=== PATIENT | male | born 1965 | race Caucasian/White ===

== ENCOUNTER → 2021-11-11 10:30 | Outpatient (BNVA) | payer OTHER, SELFPAY | PROVIDERS: PCP Family Medicine; Visit Provider Student in an Organized Health Care Education/Training Program | DX: M05.9 Rheumatoid arthritis with rheumatoid factor, unspecified (principal); E11.42 Type 2 diabetes mellitus with diabetic polyneuropathy | CPT/HCPCS: 99202 ==

== ENCOUNTER 2021-12-07 15:02 | Outpatient (REF) | payer OTHER, SELFPAY ==
--- NOTE | ~2021-12-07 | XR_ITS ---
EXAMINATION: XR SHOULDER RIGHT XR SHOULDER LEFT CLINICAL INFORMATION: Rheumatoid arthritis. COMPARISON: None TECHNIQUE: Right shoulder, 3 views Left shoulder, 3 views FINDINGS: RIGHT SHOULDER: Alignment is normal at the glenohumeral and acromioclavicular joints. Joint spaces are maintained. No erosions. There are no radiographic findings of any significant inflammatory or degenerative arthropathy. The subacromial space is normal. No abnormal soft tissue calcifications of the shoulder. The visualized right lung is normal. LEFT SHOULDER: Alignment is normal at the glenohumeral and acromioclavicular joints. Joint spaces are maintained. No erosions. The subacromial space is normal. No abnormal soft tissue calcifications. The visualized left lung is normal. XR/XR shoulder RT min 2V IMPRESSION: No significant findings. No radiographic evidence of rheumatoid arthritis at either shoulder.
--- NOTE | ~2021-12-07 | XR_ITS ---
EXAMINATION: XR ANKLE RIGHT XR ANKLE LEFT XR FOOT RIGHT XR FOOT LEFT CLINICAL INFORMATION: Rheumatoid arthritis. COMPARISON: None TECHNIQUE: Right ankle, 2 views and right foot, 3 views Left ankle, 2 views and left foot, 3 views FINDINGS: RIGHT ANKLE AND FOOT: Bones have normal alignment at the ankle. Incidentally noted is a bone island of the distal tibial diaphysis. No suspicious osseous lesion. The ankle joint space is normal. No evidence of erosions, ankle joint effusion or focal soft tissue swelling. The metatarsophalangeal are well-preserved. There appears to be minimal narrowing of the great toe interphalangeal joint space. No periarticular osteoporosis, bare area erosion, periostitis or focal soft tissue edema. LEFT ANKLE AND FOOT: Bones have normal alignment at the ankle. The ankle joint space is normal. No evidence of erosions, ankle joint effusion or focal soft tissue swelling. Small plantar calcaneal enthesophyte is present. The metatarsophalangeal are well-preserved. There is minimal narrowing of the great toe interphalangeal joint space. No periarticular osteoporosis, bare area erosion, periostitis or focal soft tissue edema. XR/XR foot LT 2V IMPRESSION: No significant radiographic findings in either foot or ankle. No evidence of rheumatoid arthritis.
--- NOTE | ~2021-12-07 | XR_ITS ---
EXAMINATION: XR ANKLE RIGHT XR ANKLE LEFT XR FOOT RIGHT XR FOOT LEFT CLINICAL INFORMATION: Rheumatoid arthritis. COMPARISON: None TECHNIQUE: Right ankle, 2 views and right foot, 3 views Left ankle, 2 views and left foot, 3 views FINDINGS: RIGHT ANKLE AND FOOT: Bones have normal alignment at the ankle. Incidentally noted is a bone island of the distal tibial diaphysis. No suspicious osseous lesion. The ankle joint space is normal. No evidence of erosions, ankle joint effusion or focal soft tissue swelling. The metatarsophalangeal are well-preserved. There appears to be minimal narrowing of the great toe interphalangeal joint space. No periarticular osteoporosis, bare area erosion, periostitis or focal soft tissue edema. LEFT ANKLE AND FOOT: Bones have normal alignment at the ankle. The ankle joint space is normal. No evidence of erosions, ankle joint effusion or focal soft tissue swelling. Small plantar calcaneal enthesophyte is present. The metatarsophalangeal are well-preserved. There is minimal narrowing of the great toe interphalangeal joint space. No periarticular osteoporosis, bare area erosion, periostitis or focal soft tissue edema. XR/XR ankle RT min 3V IMPRESSION: No significant radiographic findings in either foot or ankle. No evidence of rheumatoid arthritis.
--- NOTE | ~2021-12-07 | XR_ITS ---
EXAMINATION: XR HAND WRIST RIGHT XR HAND WRIST LEFT CLINICAL INFORMATION: Rheumatoid arthritis. COMPARISON: Radiographs of the hands from 08/08/2019. TECHNIQUE: Right hand and wrist, 3 views Left hand and wrist, 3 views FINDINGS: Left hand and wrist: Alignment is normal in the hand and wrist. The joint spaces are maintained. No periarticular osteoporosis, bare area erosions, periostitis or focal soft tissue swelling. There is punctate soft tissue calcification anterolateral to the region of the PIP joint of the third digit. Right hand and wrist: Alignment is normal in the hand and wrist. The joint spaces are maintained. No periarticular osteoporosis, bare area erosions or periostitis. Chronic mild cortical thickening of the ulnar sided cortex of the proximal phalanx of the index finger is consistent with sequela of remote trauma, unchanged compared to 08/08/2019. Again noted is a small, approximately 0.1 cm sized radiopaque foreign body in soft tissues at the web space between the second and third digits. XR/XR hand wrist LT IMPRESSION: No radiographic evidence of rheumatoid arthritis in either hand or wrist.
--- NOTE | ~2021-12-07 | XR_ITS ---
EXAMINATION: XR HAND WRIST RIGHT XR HAND WRIST LEFT CLINICAL INFORMATION: Rheumatoid arthritis. COMPARISON: Radiographs of the hands from 08/08/2019. TECHNIQUE: Right hand and wrist, 3 views Left hand and wrist, 3 views FINDINGS: Left hand and wrist: Alignment is normal in the hand and wrist. The joint spaces are maintained. No periarticular osteoporosis, bare area erosions, periostitis or focal soft tissue swelling. There is punctate soft tissue calcification anterolateral to the region of the PIP joint of the third digit. Right hand and wrist: Alignment is normal in the hand and wrist. The joint spaces are maintained. No periarticular osteoporosis, bare area erosions or periostitis. Chronic mild cortical thickening of the ulnar sided cortex of the proximal phalanx of the index finger is consistent with sequela of remote trauma, unchanged compared to 08/08/2019. Again noted is a small, approximately 0.1 cm sized radiopaque foreign body in soft tissues at the web space between the second and third digits. XR/XR hand wrist RT IMPRESSION: No radiographic evidence of rheumatoid arthritis in either hand or wrist.
--- NOTE | ~2021-12-07 | XR_ITS ---
EXAMINATION: XR ANKLE RIGHT XR ANKLE LEFT XR FOOT RIGHT XR FOOT LEFT CLINICAL INFORMATION: Rheumatoid arthritis. COMPARISON: None TECHNIQUE: Right ankle, 2 views and right foot, 3 views Left ankle, 2 views and left foot, 3 views FINDINGS: RIGHT ANKLE AND FOOT: Bones have normal alignment at the ankle. Incidentally noted is a bone island of the distal tibial diaphysis. No suspicious osseous lesion. The ankle joint space is normal. No evidence of erosions, ankle joint effusion or focal soft tissue swelling. The metatarsophalangeal are well-preserved. There appears to be minimal narrowing of the great toe interphalangeal joint space. No periarticular osteoporosis, bare area erosion, periostitis or focal soft tissue edema. LEFT ANKLE AND FOOT: Bones have normal alignment at the ankle. The ankle joint space is normal. No evidence of erosions, ankle joint effusion or focal soft tissue swelling. Small plantar calcaneal enthesophyte is present. The metatarsophalangeal are well-preserved. There is minimal narrowing of the great toe interphalangeal joint space. No periarticular osteoporosis, bare area erosion, periostitis or focal soft tissue edema. XR/XR foot RT 2V IMPRESSION: No significant radiographic findings in either foot or ankle. No evidence of rheumatoid arthritis.
--- NOTE | ~2021-12-07 | XR_ITS ---
EXAMINATION: XR ANKLE RIGHT XR ANKLE LEFT XR FOOT RIGHT XR FOOT LEFT CLINICAL INFORMATION: Rheumatoid arthritis. COMPARISON: None TECHNIQUE: Right ankle, 2 views and right foot, 3 views Left ankle, 2 views and left foot, 3 views FINDINGS: RIGHT ANKLE AND FOOT: Bones have normal alignment at the ankle. Incidentally noted is a bone island of the distal tibial diaphysis. No suspicious osseous lesion. The ankle joint space is normal. No evidence of erosions, ankle joint effusion or focal soft tissue swelling. The metatarsophalangeal are well-preserved. There appears to be minimal narrowing of the great toe interphalangeal joint space. No periarticular osteoporosis, bare area erosion, periostitis or focal soft tissue edema. LEFT ANKLE AND FOOT: Bones have normal alignment at the ankle. The ankle joint space is normal. No evidence of erosions, ankle joint effusion or focal soft tissue swelling. Small plantar calcaneal enthesophyte is present. The metatarsophalangeal are well-preserved. There is minimal narrowing of the great toe interphalangeal joint space. No periarticular osteoporosis, bare area erosion, periostitis or focal soft tissue edema. XR/XR ankle LT min 3V IMPRESSION: No significant radiographic findings in either foot or ankle. No evidence of rheumatoid arthritis.
--- NOTE | ~2021-12-07 | XR_ITS ---
EXAMINATION: XR SHOULDER RIGHT XR SHOULDER LEFT CLINICAL INFORMATION: Rheumatoid arthritis. COMPARISON: None TECHNIQUE: Right shoulder, 3 views Left shoulder, 3 views FINDINGS: RIGHT SHOULDER: Alignment is normal at the glenohumeral and acromioclavicular joints. Joint spaces are maintained. No erosions. There are no radiographic findings of any significant inflammatory or degenerative arthropathy. The subacromial space is normal. No abnormal soft tissue calcifications of the shoulder. The visualized right lung is normal. LEFT SHOULDER: Alignment is normal at the glenohumeral and acromioclavicular joints. Joint spaces are maintained. No erosions. The subacromial space is normal. No abnormal soft tissue calcifications. The visualized left lung is normal. XR/XR shoulder LT min 2V IMPRESSION: No significant findings. No radiographic evidence of rheumatoid arthritis at either shoulder.
--- NOTE | ~2021-12-07 | XR_ITS ---
EXAMINATION: XR KNEE LEFT XR KNEE RIGHT CLINICAL INFORMATION: Rheumatoid arthritis COMPARISON: None TECHNIQUE: Right knee, 2 views Left knee, 2 views FINDINGS: RIGHT KNEE: There is an enthesophyte at the upper pole of the patella. Otherwise, bones, joints and soft tissues are unremarkable. No periarticular osteoporosis or erosions. No knee joint effusion. LEFT KNEE: There is an enthesophyte at the upper pole of the patella. Also, small, old focus of ossification is present in the distal patellar tendon near its anterior tibial tubercle insertion. Otherwise, bones, joints and soft tissues are unremarkable. No periarticular osteoporosis or erosions. No knee joint effusion. XR/XR knee RT 2V IMPRESSION: No evidence of arthritic disease at either knee. No findings of either active or chronic rheumatoid arthritis.
--- NOTE | ~2021-12-07 | XR_ITS ---
EXAMINATION: XR KNEE LEFT XR KNEE RIGHT CLINICAL INFORMATION: Rheumatoid arthritis COMPARISON: None TECHNIQUE: Right knee, 2 views Left knee, 2 views FINDINGS: RIGHT KNEE: There is an enthesophyte at the upper pole of the patella. Otherwise, bones, joints and soft tissues are unremarkable. No periarticular osteoporosis or erosions. No knee joint effusion. LEFT KNEE: There is an enthesophyte at the upper pole of the patella. Also, small, old focus of ossification is present in the distal patellar tendon near its anterior tibial tubercle insertion. Otherwise, bones, joints and soft tissues are unremarkable. No periarticular osteoporosis or erosions. No knee joint effusion. XR/XR knee LT 2V IMPRESSION: No evidence of arthritic disease at either knee. No findings of either active or chronic rheumatoid arthritis.
[2021-12-07 15:40] LABS: MANUAL DIFF FLAG NO
[2021-12-07 15:49] LABS: Basophils Percent Auto 0.6 % (0-2); Eosinophils Absolute Auto 0.5 X10*3/uL (0.0-0.4); Hematocrit 40.5 % (42.0-52.0); Hemoglobin 12.7 g/dl (14.0-18.0); Imm Gran Abs Auto 0.01 X10*3/uL (0.00-0.03); Imm Gran Pct Auto 0.2 % (0.0-0.4); Lymphocytes Absolute Auto 1.8 X10*3/uL (1.2-4.9); Lymphocytes Percent Auto 28.1 % (20-40); Mean Corpuscular HGB Conc 31.4 g/dl (31.0-36.0); Mean Corpuscular Hemoglobin 23.5 pg (27.0-33.0); Monocytes Absolute Auto 0.5 X10*3/uL (0.1-1.2); Monocytes Percent Auto 7.4 % (2-11); Neutrophils Absolute Auto 3.5 x10*3/uL (2.0-8.3); Neutrophils Percent Auto 55.7 % (45-73); Platelet Count 271 X10*3/uL (160-400); Red Cell Distribution Width 16.2 % (11.0-16.0); White Blood Count 6.2 X10*3/uL (4.8-10.8)
[2021-12-07 15:56] LABS: Estimated Average Glucose 143 mg/dL; Hemoglobin A1c % 6.6 %
[2021-12-07 16:15] LABS: Alanine Aminotransferase 25 U/L (0-40); Albumin Level 4.5 g/dL (3.5-5.0); Alkaline Phosphatase 104 U/L (39-117); Anion Gap 15 (12-20); Aspartate Amino Transferase 22 U/L (5-37); Bilirubin Total 0.2 mg/dL (0.0-1.0); Blood Urea Nitrogen 17 mg/dL (9-16); C Reactive Protein 0.42 mg/dL (< or = 0.50); Calcium 9.5 mg/dL (8.4-10.2); Carbon Dioxide 25 mmol/L (22-29); Chloride 106 mmol/L (96-108); Cholesterol 139 mg/dL; Estimated Glomerular Filt Rate > 60; Glucose Random 156 mg/dL (60-115); HDL Cholesterol 31 mg/dL; Iron 45 mcg/dL (45-160); Lipase 35 U/L (8-78); Percent Iron Saturation 14 % (15-50); Potassium 4.2 mmol/L (3.3-5.1); Sodium 142 mmol/L (135-145); Total Iron Binding Capacity 311 mcg/dL (228-428); Total Protein 8.1 g/dL (6.5-8.0); Triglycerides 416 mg/dL; Unsaturated Iron Binding 266 ug/dL; Uric Acid 6.4 mg/dL (3.4-7.0)
[2021-12-07 16:29] LABS: Erythrocyte Sedimentation Rate 16 MM/HR (0-15)
[2021-12-07 16:32] LABS: Ferritin 184 ng/mL (20-250)
[2021-12-07 16:46] LABS: Folate 9.9 ng/mL (> or = 4.0); Vitamin B12 321 pg/mL (200-900)
[2021-12-07 17:06] LABS: Rheumatoid Factor 466.9 IU/mL (<15.0)
[2021-12-08 08:01] LABS: HBS Num1 41.94 mIU/mL (0-7.99); HBsAGNum1 0.21 S/CO (0.00-0.99); Hepatitis B Core Antibody Nonreactive (Nonreactive); Hepatitis B Surface Antigen Negative (Negative); ~HepC Num1 0.21 S/CO (0.00-0.79); ~Hepatitis B Surface Antibody REACTIVE (Nonreactive); ~Hepatitis C Antibody Nonreactive (Nonreactive)
[2021-12-09 04:36] LABS: Hepatitis A Antibody IgM 0.12 Index (0-0.79); ~Hepatitis A Antibody IgM Nonreactive (Nonreactive)
[2021-12-09 12:12] LABS: TS Negative Control Passed; TS Panel A 0; TS Panel B 0; TS Positive Control Passed; TSpotTB Negative (Negative)
[2021-12-09 14:37] LABS: Transferrin 234 mg/dL (188-341)
[2021-12-09 16:26] LABS: Cyclic Citrullinated Peptide >250 UNITS
[2021-12-10 11:56] LABS: Anti Nuclear Antibody Pattern Nuclear Envelope; Anti Nuclear Antibody Screen POSITIVE (NEGATIVE)
[2021-12-12 12:31] LABS: Prot Elec - Albumin 4.3 g/dL (3.8-4.8); Prot Elec - Alpha1 0.4 g/dL (0.2-0.3); Prot Elec - Alpha2 0.9 g/dL (0.5-0.9); Prot Elec - Beta 1 0.5 g/dL (0.4-0.6); Prot Elec - Beta 2 0.5 g/dL (0.2-0.5); Prot Elec - Gamma 1.5 g/dL (0.8-1.7)
[2021-12-14 12:52] LABS: IgA 306 mg/dL (47-310); IgG 1535 mg/dL (600-1640); IgM 121 mg/dL (50-300)
== END 2021-12-07 15:03 | disposition home or self-care (01) ==
LOC: HO.LAB 15:02
PROVIDERS: PCP Family Medicine; Visit Provider Student in an Organized Health Care Education/Training Program
DX: Z11.7 Encounter for testing for latent tuberculosis infection (principal); Z11.59 Encounter for screening for other viral diseases; M05.9 Rheumatoid arthritis with rheumatoid factor, unspecified; M25.541 Pain in joints of right hand; E78.5 Hyperlipidemia, unspecified; D64.9 Anemia, unspecified; E11.9 Type 2 diabetes mellitus without complications; K85.90 Acute pancreatitis without necrosis or infection, unspecified
CPT/HCPCS: 36415; 73030; 73110; 73130; 73560; 73610; 73620; 80053; 80061; 82607; 82728; 82746; 82784; 83036; 83540; 83690; 84165; 84466; 84550; 85025; 85652; 86038; 86039; 86140; 86200; 86334; 86431; 86481; 86704; 86706; 86709; 86803; 87340

== ENCOUNTER → 2021-12-22 10:00 | Outpatient (BNVA) | payer OTHER, SELFPAY | PROVIDERS: PCP Family Medicine; Visit Provider Student in an Organized Health Care Education/Training Program | DX: M05.9 Rheumatoid arthritis with rheumatoid factor, unspecified (principal); Z79.899 Other long term (current) drug therapy | CPT/HCPCS: 99212 ==

== ENCOUNTER → 2022-02-23 10:53 | Outpatient (BNVA) | payer OTHER, SELFPAY | PROVIDERS: PCP Family Medicine; Visit Provider Psychiatry & Neurology Neurology | DX: R20.0 Anesthesia of skin (principal); R20.2 Paresthesia of skin; R29.898 Other symptoms and signs involving the musculoskeletal system; M54.2 Cervicalgia | CPT/HCPCS: 99202 ==

== ENCOUNTER 2022-05-08 12:28 | Outpatient (REF) | payer OTHER, SELFPAY ==
[2022-05-08 12:47] LABS: MANUAL DIFF FLAG NO
[2022-05-08 14:13] LABS: Basophils Percent Auto 0.4 % (0-2); Eosinophils Absolute Auto 0.4 X10*3/uL (0.0-0.4); Eosinophils Percent Auto 5.7 % (0-4); Hematocrit 40.9 % (42.0-52.0); Imm Gran Abs Auto 0.03 X10*3/uL (0.00-0.03); Imm Gran Pct Auto 0.4 % (0.0-0.4); Lymphocytes Percent Auto 27.3 % (20-40); Mean Corpuscular HGB Conc 31.8 g/dl (31.0-36.0); Mean Corpuscular Hemoglobin 25.6 pg (27.0-33.0); Mean Corpuscular Volume 80.7 fL (80.0-98.0); Mean Platelet Volume 10.8 fL (9.4-12.4); Monocytes Absolute Auto 0.6 X10*3/uL (0.1-1.2); Monocytes Percent Auto 8.3 % (2-11); Neutrophils Absolute Auto 4.2 x10*3/uL (2.0-8.3); Neutrophils Percent Auto 57.9 % (45-73); Platelet Count 252 X10*3/uL (160-400); Red Blood Count 5.07 X10*6/uL (4.60-5.80); Red Cell Distribution Width 14.4 % (11.0-16.0); White Blood Count 7.2 X10*3/uL (4.8-10.8)
[2022-05-08 15:05] LABS: Alanine Aminotransferase 36 U/L (0-40); Albumin Level 4.4 g/dL (3.5-5.0); Alkaline Phosphatase 104 U/L (39-117); Anion Gap 15 (12-20); Aspartate Amino Transferase 22 U/L (5-37); Bilirubin Total 0.5 mg/dL (0.0-1.0); Blood Urea Nitrogen 19 mg/dL (9-16); C Reactive Protein 0.62 mg/dL (< or = 0.50); Calcium 9.5 mg/dL (8.4-10.2); Carbon Dioxide 22 mmol/L (22-29); Chloride 106 mmol/L (96-108); Erythrocyte Sedimentation Rate 17 MM/HR (0-15); Estimated Glomerular Filt Rate > 60; Glucose Random 191 mg/dL (60-115); Sodium 139 mmol/L (135-145); Total Protein 7.5 g/dL (6.5-8.0)
== END 2022-05-08 12:29 | disposition home or self-care (01) ==
LOC: HO.LAB 12:28
PROVIDERS: PCP Family Medicine; Visit Provider Student in an Organized Health Care Education/Training Program
DX: M05.9 Rheumatoid arthritis with rheumatoid factor, unspecified (principal); Z79.899 Other long term (current) drug therapy
CPT/HCPCS: 36415; 80053; 85025; 85652; 86140

== ENCOUNTER 2022-05-10 08:58 | Outpatient (REF) | payer OTHER, SELFPAY ==
--- NOTE | 2022-05-10 09:30 | EMG_ITS ---
Please see scanned EMG / Nerve Conduction Report. MTDD
== END 2022-05-10 08:59 | disposition home or self-care (01) ==
LOC: HO.NEURO 08:58
PROVIDERS: PCP Family Medicine; Visit Provider Psychiatry & Neurology Neurology
DX: R20.0 Anesthesia of skin (principal); R20.2 Paresthesia of skin
CPT/HCPCS: 95885; 95911

== ENCOUNTER → 2022-05-25 09:08 | Outpatient (BNVA) | payer OTHER, SELFPAY | PROVIDERS: PCP Family Medicine; Visit Provider Nurse Practitioner Family | DX: M54.2 Cervicalgia (principal); R20.0 Anesthesia of skin; R20.2 Paresthesia of skin; R29.898 Other symptoms and signs involving the musculoskeletal system | CPT/HCPCS: 99212 ==

== ENCOUNTER → 2022-06-13 13:57 | Outpatient (REF) | payer OTHER, SELFPAY | LOC: HO.SL 13:57 | PROVIDERS: Visit Provider Nurse Practitioner Family | DX: G47.33 Obstructive sleep apnea (adult) (pediatric) (principal); R40.0 Somnolence; R06.83 Snoring | CPT/HCPCS: 95806 ==

== ENCOUNTER 2022-12-07 10:28 | Outpatient (REF) | payer OTHER, SELFPAY ==
[2022-12-07 11:38] LABS: MANUAL DIFF FLAG NO
[2022-12-07 11:54] LABS: Basophils Absolute Auto 0.1 X10*3/uL (0.0-0.2); Basophils Percent Auto 0.7 % (0-2); Eosinophils Absolute Auto 0.6 X10*3/uL (0.0-0.4); Hematocrit 39.2 % (42.0-52.0); Hemoglobin 12.2 g/dl (14.0-18.0); Imm Gran Abs Auto 0.02 X10*3/uL (0.00-0.03); Imm Gran Pct Auto 0.3 % (0.0-0.4); Lymphocytes Absolute Auto 2.3 X10*3/uL (1.2-4.9); Lymphocytes Percent Auto 31.9 % (20-40); Mean Corpuscular HGB Conc 31.1 g/dl (31.0-36.0); Mean Corpuscular Hemoglobin 24.9 pg (27.0-33.0); Mean Corpuscular Volume 80.2 fL (80.0-98.0); Mean Platelet Volume 10.1 fL (9.4-12.4); Monocytes Absolute Auto 0.7 X10*3/uL (0.1-1.2); Monocytes Percent Auto 9.6 % (2-11); Neutrophils Absolute Auto 3.6 x10*3/uL (2.0-8.3); Neutrophils Percent Auto 49.5 % (45-73); Platelet Count 227 X10*3/uL (160-400); Red Blood Count 4.89 X10*6/uL (4.60-5.80); Red Cell Distribution Width 15.1 % (11.0-16.0); White Blood Count 7.2 X10*3/uL (4.8-10.8)
[2022-12-07 12:31] LABS: Erythrocyte Sedimentation Rate 23 MM/HR (0-15)
[2022-12-07 12:32] LABS: Alanine Aminotransferase 47 U/L (0-40); Albumin Level 4.3 g/dL (3.5-5.0); Alkaline Phosphatase 115 U/L (39-117); Anion Gap 15 (12-20); Aspartate Amino Transferase 39 U/L (5-37); Bilirubin Total 0.5 mg/dL (0.0-1.0); Blood Urea Nitrogen 16 mg/dL (9-16); C Reactive Protein 1.01 mg/dL (< or = 0.50); Calcium 9.4 mg/dL (8.4-10.2); Carbon Dioxide 23 mmol/L (22-29); Chloride 105 mmol/L (96-108); Estimated Glomerular Filt Rate > 60; Glucose Random 153 mg/dL (60-115); Potassium 4.2 mmol/L (3.3-5.1); Sodium 139 mmol/L (135-145); Total Protein 7.8 g/dL (6.5-8.0)
== END 2022-12-07 10:29 | disposition home or self-care (01) ==
LOC: HO.LAB 10:28
PROVIDERS: PCP Family Medicine; Visit Provider Student in an Organized Health Care Education/Training Program
DX: M05.9 Rheumatoid arthritis with rheumatoid factor, unspecified (principal); E11.40 Type 2 diabetes mellitus with diabetic neuropathy, unspecified; Z79.4 Long term (current) use of insulin; Z79.899 Other long term (current) drug therapy
CPT/HCPCS: 36415; 80053; 85025; 85652; 86140; 99212

== ENCOUNTER 2022-12-07 10:28 | Outpatient (AMB) | payer OTHER, SELFPAY ==
[2022-12-07 10:32] VITALS: BP 142/68; PULSE 78; TEMP 36.6; O2SAT 98; BMI 34.7
--- NOTE | 2022-12-07 10:32 | A.OFFVIS_ITS ---
Intake Vital Signs 12/07/22 10:32 Height 6 ft 1 in Weight 263 lb 3.711 oz BMI 34.7 BP 142/68 H Blood Pressure Location Rt brachial Position Sitting Pulse 78 Pulse Source Pulse Oximeter Temp 97.9 F Temp Source Skin Pulse Oximetry (%) 98 Intake Visit Reasons: RA Intake Note: Pt presents today for follow up. Saw Sarahi eye doctor for cataract, Tatianna Bueno managing diabetes Reports issues/pain bilateral feet, uncontrolled diabetes Brine Well Operator Required: No Accompanied by: Spouse Allergies gabapentin Adverse Reaction (Intermediate, Verified 12/07/22 10:37) Agitated penicillamine Adverse Reaction (Unknown, Verified 12/07/22 10:37) vomiting Penicillin Adverse Reaction (Unknown, Uncoded 12/07/22 10:37) Nausea and Vomiting Medication List - Last Reconciled 12/07/22 by Angela Diamond MD amlodipine 10 mg PO DAILY aspirin 81 mg PO DAILY atorvastatin 20 mg PO DAILY blood sugar diagnostic (FreeStyle Lite Strips) As directed etanercept (Enbrel SureClick) 50 mg subcut QWEEK hydroxychloroquine 200 mg PO BID ibuprofen 800 mg PO TID PRN insulin aspart U-100 (Novolog FlexPen U-100 Insulin aspart) 10 units subcut TID insulin glargine U-300 conc (Toujeo Max U-300 SoloStar) 50 units subcut BEDTIME lancets (FreeStyle Lancets) As directed lisinopril 5 mg PO DAILY meloxicam 15 mg PO DAILY metformin ER 500 mg PO BID pen needle, diabetic (BD Nancy 2nd Gen Pen Needle) As directed tamsulosin 0.4 mg PO DAILY HPI HPI Comments History of Present Illness Details 57-year-old male with seropositive rheum atoid arthritis returns for follow-up. He was last evaluated 1 year ago. He is currently on hydroxychloroquine 20 mg Twice daily. Compliant with it. States that his diabetes has been out of control recently. His most recent A1c is above 9%. States that he gets tingling and numbness in his fingers as well as his feet. He has pain in his hips and toes with walking. Also gets bilateral ankle pain and swelling. Enbrel was discussed last visit, patient and agreed to, it was authorized but patient never started it. Did not want to get another injection Initial history: This is a 56-year-old male with a past medical history of type 2 diabetes, diabetic neuropathy, dyslipidemia, seropositive RA (RF and CCP positive per notes) , anemia who presents for evaluation of his RA. His RA was diagnosed per patient about 5-10 years ago. He was on methotrexate and prednisone in the past. Patient stated that he was admitted at [facility] last year for a bile duct stone, he had a procedure and was told he had pancreatitis and was told to avoid methotrexate as it can lead to pancreatitis. He had had a cholecystectomy years before. In May of this year he was admitted at [facility] with diabetic coma that also per patient was triggered by a urogenital yeast infection. He states that his diabetes mellitus has been better controlled recently. Currently he has pain in his neck, right shoulder, pain in his hands, wrists, knees, and ankles. He has electric shock sensation going up and down his right upper extremity. Has burning pins and needle sensation at the bottom of his feet. PFSH Medical History Dyslipidemia Diabetes mellitus Surgical History Hx of vasectomy Hx of cholecystectomy Family History Other Alcoholism Cancer Diabetes Social History Household Members: Spouse Alcohol intake: never Patient Tobacco Use Status: Former Tobacco user Current occupational status: disabled Review of Systems Musc Reports back pain, Reports arthralgias, Reports joint swelling, Reports limited range of motion, Reports numbness and Reports radiating pain into limb Neuro Details: Headache, dizziness Reports numbness Physical Exam Vital Signs: Last Vital Signs Temp 97.9 F 12/07/22 10:32 Pulse 78 12/07/22 10:32 BP 142/68 H 12/07/22 10:32 Pulse Ox 98 12/07/22 10:32 BMI result Body Mass Index 34.7 Const General: cooperative, healthy appearing, comfortable and no acute distress Nutritional Appearance: obese Orientation/consciousness: patient oriented x3 Limitations: no limitations HEENT Head: Yes normocephalic and Yes atraumatic Resp Effort & Inspection: normal respiratory effort and able to speak in complete sentences Auscultation: clear to auscultation bilaterally Cardio Rate: regular rate Rhythm: regular rhythm Heart sounds: S1 normal heart sound present and S2 normal heart sound present GI Inspection: No distended Palpation (GI): Soft to palpation and nontender Neuro General: patient oriented x3 Extrem Other: [place]niere deformity of his right index No swelling or tenderness of his MCPs and PIPs bilaterally Left wrist tenderness and pain with flexion and extension Pain with full shoulder abduction bilaterally Bilateral diffuse MTP tenderness Assessment & Plan Assessment & Plan (1) Seropositive rheumatoid arthritis: Comment: +++RF+++CCP dx around 2014 on MTX for years until hospital admission 2020 with pancreatitis (gallstone pancreatitis was most likely but MTX induced pancreatitis was suspected as well) HCQ started 10/2021 partially effective Code(s): M05.9 - Rheumatoid arthritis with rheumatoid factor, unspecified Plan: This is a 57-year-old male with seropositive deforming RA who presents for follow-up. On hydroxychloroquine 200 mg Twice daily. Doing better but continues to have multiple swollen and tender joints. Will need to advance DMARDs. Patient stated that he had a genital yeast infection 2 months ago. Treated with oral and topical antifungals. His diabetes mellitus is not well controlled, most recent HbA1c is more than 9%. Will avoid biologic DMARDs at this point. Discussed risks and benefits of sulfasalazine. Start sulfasalazine 500 mg Twice daily and uptitrated to 1000 mg Twice daily Labs today and before next visit in 2 months. Patient and state that the might be moving near [place] and might seek evaluation by another fisher closer to home Infectious screening hepatitis panel and T spot negative 11/2021 (2) Long-term use of hydroxychloroquine: Code(s): Z79.899 - Other terminal computer operator (current) drug therapy Plan: Patient is tolerating hydroxychloroquine 200 mg Twice daily. Advised patient to call his photographer lithographic Dr. Mcclain and request hydroxychloroquine screening. Plan I spent 25 minutes reviewing patient's chart, evaluating patient, ordering diagnostic workup, counseling patient and documenting in the chart Orders: Orders C Reactive Protein 2 Months M05.9 - Rheumatoid arthritis with rheumatoid factor, unspecified Complete Blood Count Auto Diff Today M05.9 - Rheumatoid arthritis with rheumatoid factor, unspecified C Reactive Protein Today M05.9 - Rheumatoid arthritis with rheumatoid factor, unspecified Complete Blood Count Auto Diff 2 Months M05.9 - Rheumatoid arthritis with rheumatoid factor, unspecified Comprehensive Met. Panel 2 Months M05.9 - Rheumatoid arthritis with rheumatoid factor, unspecified Erythrocyte Sedimentation Rate 2 Months M05.9 - Rheumatoid arthritis with rheumatoid factor, unspecified Comprehensive Met. Panel Today M05.9 - Rheumatoid arthritis with rheumatoid factor, unspecified Erythrocyte Sedimentation Rate Today M05.9 - Rheumatoid arthritis with rheumatoid factor, unspecified Medications: New sulfasalazine give with food (meal/snack) Take 1 tab twice daily for 1 week then 2 tabs with breakfast 1 tab with dinner for 1 week then 2 tabs twice daily 240 tabs 0RF Discontinued etanercept (Enbrel SureClick) Discontinued Reason: Patient Refused 50 mg subcut QWEEK 4 mL 3RF Coding Level of Care Code Est Pt Level 4 (21853) Diagnoses Seropositive rheumatoid arthritis M05.9 Long-term use of hydroxychloroquine Z79.899
== END 2022-12-07 11:13 | disposition home or self-care (01) ==
PROVIDERS: PCP Family Medicine; Visit Provider Student in an Organized Health Care Education/Training Program
DX: M05.79 Rheumatoid arthritis with rheumatoid factor of multiple sites without organ or systems involvement (principal); Z79.899 Other long term (current) drug therapy
CPT/HCPCS: 99214